=== PATIENT | male | born 1980 | race Caucasian/White ===

== ENCOUNTER → 2018-08-12 | Outpatient (REF) ==
[~2018-08-12] MED LIST: ABIL5TAB OR; ADVIL PO; BAYER BACK PO; BODY PO; CELE100C OR; DICL0.1S7 TOP; EFFEXOR XR PO; KLON2TAB OR; KLON2TAB PO; PROP10TAB PO; SKEL800T5 OR; TPS cream TOP; TRAZ100T2 PO; TRAZ50TA PO; VENL100T OR; VENL37TA PO; ZANA4CAP OR; ZYPR1TAB4 PO
--- NOTE | 2018-08-12 10:39 | REP ---
RIGHT KNEE SERIES: FIVE VIEWS. HISTORY: Degenerative disease. FINDINGS: Five views of the right knee demonstrate early osteoarthritic spurring at the superior pole patella on the lateral radiograph. There is mild spurring at the inferior pole at the attachment of the patellar tendon which may reflect patellar tendinopathy. Bones, joints, and soft tissues are otherwise radiographically unremarkable. IMPRESSION: Patellar spurring. Otherwise negative. Electronically Signed by Diogo Mueller MD 08/12/2018 08:29 P
== END ==
LOC: M SMT 09:11
PROVIDERS: ATTEND Internal Medicine
DX: M25.761 Osteophyte, right knee (principal)

== ENCOUNTER → 2023-03-28 | Outpatient (CLI) | payer OTHER | LOC: M RAD 07:25 | DX: F29 Unspecified psychosis not due to a substance or known physiological condition (principal); F43.10 Post-traumatic stress disorder, unspecified ==